=== PATIENT | female | born 1990 | race Caucasian/White ===

== ENCOUNTER 2016-05-29 09:48 | Outpatient (CLI) | payer MEDICAID | END 2016-05-29 09:49 | disposition home or self-care (01) | DX: R05 Cough (principal) ==

== ENCOUNTER 2016-10-09 17:22 | Outpatient (CLI) | payer MEDICAID ==
--- NOTE | 2016-10-10 10:01 | XRAY Report ---
TWO-VIEW CERVICAL SPINE: 10/09/2016 CLINICAL INDICATION: Scoliosis. FINDINGS: Frontal and lateral views of the cervical spine demonstrate straightening of the normal ce rvical lordosis. There is no evidence of fracture or subluxation. The disk spaces are preserved. T he prevertebral soft tissues are unremarkable. IMPRESSION: STRAIGHTENING OF THE NORMAL CERVICAL LORDOSIS. NO SIGNIFICANT CERVICAL SCOLIOSIS. JOB #: [id number] EXT JOB #:[id number]
--- NOTE | 2016-10-10 10:02 | XRAY Report ---
TWO-VIEW THORACIC SPINE: 10/09/2016 CLINICAL INDICATION: Scoliosis. FINDINGS: Frontal and lateral views of the thoracic spine demonstrate dextroscoliosis of the lower t horacic spine, measuring 22 degrees between the pedicles of T6 and T11. There is no evidence of comp ression fracture. The disk spaces are preserved. IMPRESSION: A 22 DEGREE DEXTROSCOLIOSIS OF THE LOWER THORACIC SPINE. JOB #: [id number] EXT JOB #:[id number]
--- NOTE | 2016-10-10 10:04 | XRAY Report ---
TWO-VIEW LUMBAR SPINE: 10/09/2016 CLINICAL INDICATION: Scoliosis. FINDINGS: Frontal and lateral views of the lumbar spine demonstrate compensatory levoscoliosis, mushtaq uring 17 degrees between the pedicles of T12 and L4. There is no evidence of fracture. The disk spa joselito are preserved. IMPRESSION: A 17 DEGREE LEVOSCOLIOSIS OF THE LUMBAR SPINE. JOB #: [id number] EXT JOB #:[id number]
== END 2016-10-09 23:59 | disposition home or self-care (01) ==
LOC: DI 17:22
PROVIDERS: ATTEND Family Medicine
DX: M41.84 Other forms of scoliosis, thoracic region (principal); M41.86 Other forms of scoliosis, lumbar region
CPT/HCPCS: 72040; 72070; 72100

== ENCOUNTER 2017-04-08 15:54 | Outpatient (CLI) | payer MEDICAID | END 2017-04-08 15:55 | disposition home or self-care (01) | LOC: LAB.WCP 15:54 | PROVIDERS: ATTEND Family Medicine | DX: N91.2 Amenorrhea, unspecified (principal) | CPT/HCPCS: 36415; 84702; 84703 ==

== ENCOUNTER 2017-05-01 08:00 | Outpatient (CLI) | payer MEDICAID ==
[2017-05-01 18:39] LABS: BASOPHILS # (AUTO) 0.1 10^3/uL (0.0-0.1); EOSINOPHILS # (AUTO) 0.4 10^3/uL (0.0-0.7); EOSINOPHILS % (AUTO) 4.7 %; HCT - HEMATOCRIT 41.4 % (37.0-47.0); HGB - HEMOGLOBIN 13.8 g/dL (12.0-16.0); LYMPHOCYTES # (AUTO) 2.1 10^3/uL (1.5-3.5); LYMPHOCYTES % (AUTO) 27.2 %; MEAN CORPUSCULAR HEMOGLOBIN 30.6 pg (27.0-31.0); MEAN CORPUSCULAR HGB CONC 33.2 g/dL (32.0-36.0); MEAN CORPUSCULAR VOLUME 92.1 fL (81.0-99.0); MEAN PLATELET VOLUME 9.6 fL (7.9-10.8); MONOCYTES # (AUTO) 0.5 10^3/uL (0.0-1.0); NEUTROPHILS # (AUTO) 4.8 10^3/uL (1.5-6.6); NEUTROPHILS % (AUTO) 61.1 %; RED BLOOD COUNT 4.49 10^6/uL (4.20-5.40); RED CELL DISTRIBUTION WIDTH 13.5 % (12.0-15.0); UNCORRECTED WHITE BLOOD COUNT 7.9 x10^3/uL; WHITE BLOOD COUNT 7.9 x10^3/uL (4.8-10.8)
[2017-05-01 19:02] LABS: ALBUMIN/GLOBULIN RATIO 1.5 (1.0-2.2); BILIRUBIN,TOTAL 0.2 mg/dL (0.2-1.0); BUN - BLOOD UREA NITROGEN 12 mg/dL (6-20); CALCIUM 9.1 mg/dL (8.5-10.3); CARBON DIOXIDE - CO2 23 mmol/L (21-32); CHLORIDE 104 mmol/L (101-111); CREATININE 0.5 mg/dL (0.4-1.0); GFR - MDRD 150 (>89); GLUCOSE 98 mg/dL (70-100); POTASSIUM 3.4 mmol/L (3.5-5.0); SODIUM 137 mmol/L (135-145); TOTAL PROTEIN 7.4 g/dL (6.7-8.2)
== END 2017-05-01 08:01 | disposition home or self-care (01) ==
LOC: LAB.WCP 08:00
PROVIDERS: ATTEND Family Medicine
DX: F31.31 Bipolar disorder, current episode depressed, mild (principal); N91.2 Amenorrhea, unspecified
CPT/HCPCS: 36415; 80053; 84443; 84702; 85025

== ENCOUNTER 2017-05-28 11:58 | Outpatient (CLI) | payer MEDICAID ==
[2017-05-28 12:35] LABS: BILIRUBIN,URINE NEGATIVE (NEGATIVE); GLUCOSE, URINE (UA) NEGATIVE (NEGATIVE); KETONES,URINE (UA) NEGATIVE (NEGATIVE); LEUKOCYTE ESTERASE, URINE NEGATIVE (NEGATIVE); NITRITE,URINE NEGATIVE (NEGATIVE); OCCULT BLOOD,URINE NEGATIVE (NEGATIVE); PROTEIN,URINE NEGATIVE (NEGATIVE); UROBILINOGEN,URINE 0.2 (NORMAL) E.U./dL (NORMAL)
[2017-05-28 12:38] LABS: CLARITY,URINE CLEAR (CLEAR)
[2017-05-28 12:39] LABS: BACTERIA,URINE Rare /HPF (None Seen); RBC,URINE 0-5 /HPF (0-5); SQUAMOUS EPITHELIAL CELL,UR MOD Squamous (<= Few)
[2017-05-28 12:51] LABS: BASOPHILS % (AUTO) 0.5 %; EOSINOPHILS # (AUTO) 0.1 10^3/uL (0.0-0.7); EOSINOPHILS % (AUTO) 1.1 %; HGB - HEMOGLOBIN 13.6 g/dL (12.0-16.0); LYMPHOCYTES # (AUTO) 2.3 10^3/uL (1.5-3.5); LYMPHOCYTES % (AUTO) 25.9 %; MEAN CORPUSCULAR HEMOGLOBIN 30.8 pg (27.0-31.0); MEAN CORPUSCULAR HGB CONC 33.6 g/dL (32.0-36.0); MEAN CORPUSCULAR VOLUME 91.7 fL (81.0-99.0); MEAN PLATELET VOLUME 8.8 fL (7.9-10.8); MONOCYTES # (AUTO) 0.6 10^3/uL (0.0-1.0); MONOCYTES % (AUTO) 6.8 %; NEUTROPHILS # (AUTO) 5.8 10^3/uL (1.5-6.6); NEUTROPHILS % (AUTO) 65.7 %; PLT - PLATELET COUNT 327 10^3/uL (130-450); RED BLOOD COUNT 4.41 10^6/uL (4.20-5.40); RED CELL DISTRIBUTION WIDTH 12.7 % (12.0-15.0); WHITE BLOOD COUNT 8.9 x10^3/uL (4.8-10.8)
[2017-05-29 12:45] LABS: HIV AG/AB 4TH GEN NON-REACTIVE (NON-REACTIVE)
[2017-05-29 13:00] LABS: HEPATITIS B SURFACE ANTIGEN NON-REACTIVE (NON-REACTIVE)
== END 2017-05-28 11:59 | disposition home or self-care (01) ==
LOC: LAB 11:58
PROVIDERS: ATTEND Nurse Practitioner Obstetrics & Gynecology
DX: Z36.9 Encounter for antenatal screening, unspecified (principal)
CPT/HCPCS: 36415; 81001; 81599; 85025; 86592; 86762; 86850; 86900; 86901; 87340; 87389

== ENCOUNTER 2017-09-08 07:24 | Outpatient (CLI) | payer MEDICARE, MEDICAID ==
--- NOTE | 2017-09-08 16:08 | Ultrasound Report ---
OB ULTRASOUND: 09/08/2017 CLINICAL INDICATION: anatomy. TECHNIQUE: Real-time scanning was performed with employment program representative static images obtained. LAST MENSTRUAL PERIOD: unknown Clinical Age: -- US Age: 24 weeks 2 days EFW Hadlock: 640 grams EFW% Hadlock: -- Heart Rate: 146 bpm EDC: -- US EDC: 12/27/2017 BPD Hadlock: 25 weeks 0 days; Mean mm 62 HC Hadlock: 24 weeks 5 days; Mean mm 227 AC Hadlock: 25 weeks 0 days; Mean mm 204 FL Hadlock: 22 weeks 1 day; Mean mm 38 Presentation: -- Placental Location: anterior Cervical Length: TA 3.7 cm Amniotic Fluid: subjectively normal; MVP 4.5 cm FINDINGS: There is a single viable intrauterine gestation, in variable presentation. heart rate is 146 BPM. The placenta is anterior, without evidence of previa. Amniotic fluid volume is subjectively normal, with the deepest pocket of 4.5 cm. By size, the fetus measures 24 weeks 2 days (uncertain LMP). The following anatomic structures were visualized and appear normal: The intracranial contents, including the ventricles and posterior fossa; the lips and orbits; the spine; the heart, including 4 chamber view and outflow tracts, and diaphragm; the abdominal contents, including the stomach, and urinary bladder, as well as a normal 3-vessel cord insertion; 4 limbs. Note is made of renal pelviectasis, measuring 6 mm on the left and 5 mm on the right. No free fluid or adnexal lesion is appreciated. IMPRESSION: SINGLE VIABLE INTRAUTERINE GESTATION, MEASURING 24 WEEKS 2 DAYS BY SIZE. BILATERAL RENAL PELVIECTASIS. THIS SHOULD BE REEVALUATED IN THE THIRD TRIMESTER. OTHERWISE, NORMAL ANATOMIC SURVEY. TD: 09/08/2017 10:36 [facility]
== END 2017-09-08 07:25 | disposition home or self-care (01) ==
LOC: DI 07:24
PROVIDERS: ATTEND Nurse Practitioner Obstetrics & Gynecology
DX: Z36.9 Encounter for antenatal screening, unspecified (principal); O28.3 Abnormal ultrasonic finding on antenatal screening of mother; Z3A.24 24 weeks gestation of pregnancy
CPT/HCPCS: 76811

== ENCOUNTER 2017-09-16 08:44 | Outpatient (CLI) | payer MEDICAID, MEDICARE ==
[2017-09-16 09:25] LABS: HGB - HEMOGLOBIN 12.8 g/dL (12.0-16.0); MEAN CORPUSCULAR HEMOGLOBIN 30.9 pg (27.0-31.0); MEAN CORPUSCULAR HGB CONC 34.1 g/dL (32.0-36.0); MEAN CORPUSCULAR VOLUME 90.6 fL (81.0-99.0); MEAN PLATELET VOLUME 8.1 fL (7.9-10.8); RED BLOOD COUNT 4.15 10^6/uL (4.20-5.40); RED CELL DISTRIBUTION WIDTH 13.3 % (12.0-15.0); WHITE BLOOD COUNT 13.1 x10^3/uL (4.8-10.8)
== END 2017-09-16 08:45 | disposition home or self-care (01) ==
LOC: LAB 08:44
PROVIDERS: ATTEND Registered Nurse
DX: Z34.82 Encounter for supervision of other normal pregnancy, second trimester (principal)
CPT/HCPCS: 36415; 82950; 86850

== ENCOUNTER 2017-10-06 07:54 | Outpatient (CLI) | payer MEDICAID, MEDICARE | END 2017-10-06 07:55 | disposition home or self-care (01) | LOC: LAB 07:54 | PROVIDERS: ATTEND Registered Nurse | DX: R73.02 Impaired glucose tolerance (oral) (principal) | CPT/HCPCS: 36415; 82951; 82952 ==

== ENCOUNTER 2017-10-12 11:24 | Outpatient (CLI) | payer MEDICARE, MEDICAID ==
[2017-10-12 12:38] LABS: BASOPHILS % (AUTO) 0.7 %; EOSINOPHILS % (AUTO) 0.8 %; HGB - HEMOGLOBIN 13.5 g/dL (12.0-16.0); MEAN CORPUSCULAR HEMOGLOBIN 30.1 pg (27.0-31.0); MEAN CORPUSCULAR HGB CONC 33.9 g/dL (32.0-36.0); MEAN CORPUSCULAR VOLUME 88.9 fL (81.0-99.0); MEAN PLATELET VOLUME 7.9 fL (7.9-10.8); MONOCYTES % (AUTO) 4.4 %; NEUTROPHILS % (AUTO) 83.1 %; PLT - PLATELET COUNT 308 10^3/uL (130-450); RED BLOOD COUNT 4.47 10^6/uL (4.20-5.40); RED CELL DISTRIBUTION WIDTH 13.4 % (12.0-15.0); WHITE BLOOD COUNT 14.8 x10^3/uL (4.8-10.8)
[2017-10-12 12:43] VITALS: BP 130/93
[2017-10-12 12:43] LABS: ABNORMAL LYMPHS % (MANUAL) 0 %; BAND NEUTROPHILS % (MANUAL) 0 %
[2017-10-12 12:56] LABS: CREATININE,URINE < 13.0 mg/dL; TOTAL PROTEIN,URINE TIMED < 6 mg/dL
[2017-10-12 13:21] LABS: BASOPHILS # (MANUAL) 0.3 10^3/uL (0-0.1); BASOPHILS % (MANUAL) 2 %; EOSINOPHILS # (MANUAL) 0.1 10^3/uL (0-0.7); LYMPHOCYTES # (MANUAL) 2.5 10^3/uL (1.5-3.5); LYMPHOCYTES % (MANUAL) 16 %; MONOCYTES # (MANUAL) 0.9 10^3/uL (0.0-1.0); MYELOCYTES % (MANUAL) 1 %; NEUTROPHILS # (MANUAL) 10.8 10^3/uL (1.5-6.6); NEUTROPHILS % (MANUAL) 73 %
[2017-10-12 13:22] LABS: DIFFERENTIAL COMMENT MANUAL DIFFERENTIAL
== END 2017-10-12 13:06 | disposition home or self-care (01) ==
LOC: WFO 11:24 → FBP 11:26 → WFO 13:06
PROVIDERS: ATTEND Registered Nurse
DX: O13.3 Gestational [pregnancy-induced] hypertension without significant proteinuria, third trimester (principal); Z3A.28 28 weeks gestation of pregnancy
CPT/HCPCS: 36415; 59025; 82570; 83615; 84156; 84450; 84460; 84550; 85025

== ENCOUNTER 2017-10-13 08:00 | Outpatient (CLI) | payer MEDICAID, MEDICARE ==
[2017-10-13 16:49] LABS: TOTAL PROTEIN,URINE TIMED < 6 mg/dL; TOTAL VOLUME 24HRS,URINE 3240 mL
== END 2017-10-13 08:01 | disposition home or self-care (01) ==
LOC: LAB.R 08:00
PROVIDERS: ATTEND Registered Nurse
DX: O24.410 Gestational diabetes mellitus in pregnancy, diet controlled (principal)
CPT/HCPCS: 84156

== ENCOUNTER 2017-11-24 13:23 | Inpatient (IN) | payer MEDICARE, MEDICAID ==
[2017-11-24] MEDS ORDERED: OXYTOCIN/SODIUM CHLORIDE 0 ML IV ONE (13:55)
[2017-11-24] MEDS ORDERED: MAGNESIUM HYDROXIDE 2,400 MG/30 ML UDC PO PRN (14:04)
[2017-11-24] MEDS ORDERED: HYDROCORTISONE/PRAMOXINE 10 GM PR PRN (14:04)
[2017-11-24] MEDS ORDERED: OXYTOCIN/SODIUM CHLORIDE 250 ML IV ONE (14:04)
[2017-11-24] MEDS ORDERED: HYDROCORTISONE 1% CREAM 28 GM TUBE PR PRN (14:04)
[2017-11-24] MEDS ORDERED: oxyCODONE 5 MG TABLET PO PRN (14:04)
[2017-11-24] MEDS ORDERED: WITCH HAZEL/GLYCERIN 1 EACH MED..PAD TOP PRN (14:04)
--- NOTE | 2017-11-24 14:12 | DELIVERY NOTE ---
Delivery Note - Labor Labor: positive: Spontaneous - Delivery Method Delivery Method: positive: Spontaneous vaginal delivery - Presentation Presentation: positive: Vertex, FREDRICK - right occiput anterior - Nuchal Cord Nuchal Cord: positive: Present (tight x1; delivered through) - Anesthetic Anesthetic Type: - Episiotomy Type Episiotomy Type: positive: None - Laceration Laceration: positive: None - Delivery Outcome Delivery Outcome: positive: Livebirth - : positive: Placed in direct skin contact with mother, Suctioned, Bulb syringe, Stimulated, Warmed, Warmer used [place] sex: positive: Male - Cord Cord: positive: 3 vessels - Placenta Placenta: positive: Intact, Spontaneous - Estimated Blood Loss Estimated Blood Loss (in cc): 150 - Post Delivery Events Post Delivery Events: positive: No post delivery events - Delivery Comments (Free Text/Narrative) Delivery Comments (Free Text/Narrative): Martin Malone is a 27 y/o [id number] @ 34w6d by first trimester US who presented in spontaneous, active labor w/ advanced dilatation & progressed over a period of 2 minutes to complete dilatation @ 1341, for a total first stage duration of 1 hour. She pushed w/ spontaneous urge to viable male in FREDRICK position over intact perineum @ 1354, for a total 2nd stage duration of 13 minutes. Tight nuchal cord x1 non-reducible; delivered through, vigorous w/ spontaneous, lusty cry. Placed to maternal abd for drying/stim. Delayed cord clamping x2 minutes, then cord clamped x2 by CNM, cut by pt. 3VC noted, cord segment obtained for gases secondary to nature of delivery, cord blood obtained. Active management of the 3rd stage of labor w/ 10u IM pitocin x1. Placenta delivered spontaneously, intact @1359, for a total 3rd stage duration of 5min. FF @ U. Vagina & perineum inspected & found to be intact. EBL 150mL. Infant Apgars 9 at 1 and 9 at 5. Weight pending. Placenta to pathology for nature of delivery. Mother & infant presently stable, actively nuzzling breast w/in 15 minutes of delivery.
--- NOTE | 2017-11-24 14:17 | HISTORY & PHYSICAL EXAMINATION ---
Admit History - Instructions [place] Ak/Slash: -Left hand click circles element as positive or present. -Right hand click slashes element as negative or not present. - Visit Reason Visit Reason: Contractions (beginning @ 12:00, painful) - : 1 Parity: 0 Premature: 0 Ectopic: 0 : 0 Care: positive: [facility] (beginning @ 9 weeks' gestation, x11 total visits) Complications This : positive: Gestational diabetes, induced HTN Smoking Status: Never smoker - Mother's Labs Mother's Blood Type: positive: O Mother's RH: positive: Negative GBS: positive: Other (unknown) Rubella Status: positive: Non-immune - Other Maternal History Other Maternal History: cognitive deficit Meds/Allgy - Allergies Allergies/Adverse Reactions: Allergies Allergy/AdvReac Type Severity Reaction Status Date / Time No Known Drug Allergies Allergy Verified 10/12/17 12:02 Review of Systems - Constitutional Constitutional: denies: Fatigue, Fever, Chills, Weakness - Eyes Eyes: denies: Blurred vision, Spots in vision, Dipolpia - Cardiovascular Cariovascular: denies: Irregular heart rate, Palpitations, Chest pain, Edema - Respiratory Respiratory: denies: Cough, Sputum production, Wheezing, SOB with exertion - Gastrointestinal Gastrointestinal: reports: Abdominal pain (contractions). denies: Constipation , Diarrhea, Change in bowel habits, Nausea, Vomiting - Genitourinary Genitourinary: reports: Frequency, Urgency, Incontinence. denies: Dysuria - Musculoskeletal Musculoskeletal: reports: Back pain. denies: Muscle pain, Muscle aches - Integumentary Integumentary: denies: Rash, Pruritis, Lesions, Dryness - Neurological Neurological: denies: General weakness, Focal weakness, Headache, Dizziness - Psychiatric Psychiatric: reports: Anxiety. denies: Depression Physical - Abdominal Exam Contraction Frequency (min/apart): q 2 min Contraction Intensity: positive: Strong Uterine Resting Tone: positive: Soft - Monitoring Heart Rate Baseline: 130 Strip Review: positive: Category I - Presentation Presentation: positive: Vertex - Vaginal Exam Membranes: positive: Membranes ruptured (unknown duration of rupture) Dilation (in cm): 10 Effacement (%): 100 Station: positive: 1 Cervical Position: positive: Anterior - Speculum Exam Speculum Exam Performed: positive: No Findings: negative: Gross leak - Other Notes Labor Progress Note/Additional Text: Martin Malone is a 27 y/o @ 34w6d by first trimester US who presents w/ complaint of uterine contractions becoming intense @ 12:00, some bloody show, thinks she had some wetness in her underpants when she woke @ 8: 00. Her has been complicated by her cognitive deficit w/ known hx of autism, severe anxiety, the development of GDMA1 that has been well-controlled w / diet t/o & the development of gestational HTN w/o s/sx PET that has not required any medication management; she has had reassuring antepartum surveillance & consistently WNL SHIRA & NATHALIA. She is completely dilated & pushing w/ spontaneous urge @ the time of admission assessment. PMH: autistic spectrum disorder, generalized anxiety disorder, depressive disorder, migraine, lumbosacral plexus d/o, mild intermittent asthma PSH: none obhx: primiparous gynhx: NILM pap x1 in 2018, no hx of STI sochx: unemployed, on disability for pervasive developmental disability; to Rich, who also has a developmental disability, no ETOH/tobacco/ drugs, good social support from in-laws, hx depression/anxiety, presently well- managed w/ vistaril, zoloft & buspar during ; discontinued seroquel w/ awareness of , no DV; will need social work consult s/p delivery famhx: maternal hx PTD Plan for Labor - Plan For Labor I expect patient to be DC'd or transferred within 96 hours.: Yes Plan for Labor: Admit Delivery Imminent Peds notified
[2017-11-24] MEDS: ACETAMINOPHEN 500 MG TABLET PO SCH ×2 (15:18→22:04)
[2017-11-24] MEDS ORDERED: OXYTOCIN 10 UNIT/ML VIAL ONE (18:47)
[2017-11-24] MEDS: DOCUSATE SODIUM 100 MG CAPSULE PO SCH (22:04)
[2017-11-25] MEDS: ACETAMINOPHEN 500 MG TABLET PO SCH ×3 (05:40→21:46)
[2017-11-25] MEDS ORDERED: MEASLES,MUMPS & RUBELLA VACC 0.5 ML VIAL SUBQ ONE (08:22)
[2017-11-25] MEDS ORDERED: RHO(D) IMMUNE GLOBULIN 300 MCG SYRINGE IM ONE (08:22)
[2017-11-25] MEDS ORDERED: OXYTOCIN 10 UNIT/ML VIAL IM ONE (08:22)
--- NOTE | 2017-11-25 08:25 | PROVIDER PROGRESS NOTE ---
Subjective - Prog Note Date Prog Note Date: 11/25/17 Prog Note Time: 08:15 - Subjective Pt reports feeling: Improved Subjective: Pratima is doing well. She is ambulating & voiding w/o difficulty or incontinence. She reports minimal lochia rubra. She states her pain is well- controlled w/ acetaminophen only. She is not yet able to get her to latch, but she is pumping & spoon-feeding & continues her efforts to encourage him to latch. She is not planning to return to work. She is well-supported by Rich & his family. Objective - Vital Signs/Intake & Output Reviewed Vital Signs: Yes Intake & Output: Intake & Output 11/22/17 11/23/17 11/24/17 11/25/17 23:59 23:59 23:59 23:59 Intake Total 200 Output Total 800 Balance -800 200 - Objective General Appearance: positive: No acute distress, Alert Respiratory: positive: Chest non-tender, No respiratory distress, Breath sounds nml Cardiovascular: positive: Regular rate & rhythm, No murmur Abdomen: positive: Non-tender, No distention, Other (FF U-2) Skin: positive: Color nml, No rash, Warm, Dry Extremities: positive: Non-tender, Full ROM, Nml appearance, No pedal edema. negative: Calf tenderness, Kailee's sign/cords Neurologic/Psychiatric: positive: Oriented x3, CN's nml (2-12), Motor nml, Sensation nml, Mood/affect nml - Lab Results Other Labs: Lab Results x24hrs 11/24/17 Range/Units 17:08 Blood Type O NEGATIVE Weak D (Du) WEAK-D NEGATIVE Maternal Bleed NEGATIVE (NEGATIVE) Assessment/Plan - Problem List (1) (normal spontaneous vaginal delivery) Impression: 27 y/o s/p precipitous delivery 11/25/2017, PPD #1 Normal uterine involution Minimal lochia Adequate pain control 1. Continue routine care 2. support provided & to continue in ongoing fashion 3. Ongoing social work involvement secondary to developmental delay to ensure adequate resources for provision of care 4. Anticipate d/c PPD#2
[2017-11-25] MEDS: DOCUSATE SODIUM 100 MG CAPSULE PO SCH ×2 (13:54→21:46)
[2017-11-26] MEDS: ACETAMINOPHEN 500 MG TABLET PO SCH ×2 (05:36→13:14)
[2017-11-26] MEDS ORDERED: RHO(D) IMMUNE GLOBULIN 300 MCG SYRINGE IM SCH (05:45)
[2017-11-26] MEDS: DOCUSATE SODIUM 100 MG CAPSULE PO SCH (09:33)
--- NOTE | 2017-11-26 10:06 | Discharge Plan ---
Discharge Plan Disposition: 01 Home, Self Care Condition: Good Diet: Regular Activity Restrictions: pelvic rest x6 weeks Shower Restrictions: No Driving Restrictions: No Weight Bearing: Full Weight Instruction Topics: Vaginal After, Breastfeed How To, Jaundice Signs Inf , Exercises Kegel No Smoking: If you smoke, Please STOP! Call for help. Follow-up with: Irais Lentz CNM, [facility] [Provider Admit Priv/Credential] -
--- NOTE | 2017-11-26 10:12 | DISCHARGE SUMMARY ---
"Discharge Summary Admit Date: 11/24/17 Discharge Date: 11/26/17 Discharging Provider: LILIAN Code Status: Attempt Resuscitation Condition at Discharge: Good Discharge Disposition: 01 Home, Self Care Discharge Facility Name: [facility] - DIAGNOSES Admission Diagnoses: SPONTANEOUS LABOR @ 34WEEKS GESTATION PRECIPITOUS GESTATIONAL DM A1 GESTATIONAL HTN Discharge Diagnoses with Status of Each Condition: - HPI History of Present Illness: Martin Malone is a 27 y/o [id number] who presented in active, spontaneous labor @ 34w6d gestation by first trimester US. She delivered a viable male vaginally precipitously 17 minutes s/p arrival @ the hospital w/o laceration, intervention or complication. - CONSULTS | PROCEDURES Procedures: - HOSPITAL COURSE Hospital Course: , Martin is ambulating & voiding w/o difficulty or incontinence. She is passing flatus & tolerating a regular diet. She is w/ some challenges secondary to prematurity but is pumping & spoon-feeding her successfully & w/ copious colostrum production. Her pain is well- managed w/o analgesia & she is having minimal lochia rubra. Martin is well- supported by her 's family and her , although her 's disability does limit his capacity to be productive in his assistance. Martin is not planning to return to work & does not intend another . She has been seen by social work & has arrangements for extensive social support s/p discharge. She intends oral contraception for prevention & is highly compliant w/ her medication regimen. She has a hx of anxiety & depression, which have been well-controlled w/ sertraline, buspirone & hydroxyzine during the course of her . She intends to continue her present medication regimen s/p discharge. She is able to fully articulate pp warning s/sx, including pp depression s/sx, and pp aftercare instructions. Her will not be d/c'ed today, but Martin will be discharged from inpatient status & will remain as a boarder to continue to provide direct care and breastmilk for her . She will f/u as an outpatient in one week and earlier PRN. She has emergency contact information. - ALLERGIES Allergies/Adverse Reactions: Allergies Allergy/AdvReac Type Severity Reaction Status Date / Time No Known Drug Allergies Allergy Verified 10/12/17 12:02"
[2017-11-26 16:00] VITALS: BP 138/86
[2017-11-26] MEDS ORDERED: MEASLES,MUMPS & RUBELLA VACC 0.5 ML VIAL SUBQ ONE ×2 (17:00→17:10)
== END 2017-11-26 18:01 | disposition home or self-care (01) | DRG 775 ==
LOC: WFO 13:23 → FBP 13:40 → WFO 14:03 → FBP 14:04
PROVIDERS: ADMIT Registered Nurse; ATTEND Registered Nurse
PROC: 10E0XZZ Delivery of Products of Conception, External Approach (ICD-10-PCS; principal; 2017-11-24)
DX: O60.14X0 Preterm labor third trimester with preterm delivery third trimester, not applicable or unspecified (principal); F84.0 Autistic disorder; O42.013 Preterm premature rupture of membranes, onset of labor within 24 hours of rupture, third trimester; O62.3 Precipitate labor; O69.81X0 Labor and delivery complicated by cord around neck, without compression, not applicable or unspecified; Z3A.34 34 weeks gestation of pregnancy; Z37.0 Single live birth; O24.420 Gestational diabetes mellitus in childbirth, diet controlled; O13.4 Gestational [pregnancy-induced] hypertension without significant proteinuria, complicating childbirth; O99.344 Other mental disorders complicating childbirth; F41.1 Generalized anxiety disorder; F29 Unspecified psychosis not due to a substance or known physiological condition; Z79.899 Other long term (current) drug therapy; Z28.3 Underimmunization status
CPT/HCPCS: 83033; 86900; 86901

== ENCOUNTER 2017-12-14 11:43 | Emergency (ER) | payer MEDICARE, MEDICAID ==
[2017-12-14 13:16] LABS: BASOPHILS # (AUTO) 0.1 10^3/uL (0.0-0.1); EOSINOPHILS # (AUTO) 0.8 10^3/uL (0.0-0.7); HGB - HEMOGLOBIN 14.5 g/dL (12.0-16.0); LYMPHOCYTES # (AUTO) 1.7 10^3/uL (1.5-3.5); LYMPHOCYTES % (AUTO) 15.7 %; MEAN CORPUSCULAR HEMOGLOBIN 30.2 pg (27.0-31.0); MEAN CORPUSCULAR VOLUME 88.8 fL (81.0-99.0); MONOCYTES # (AUTO) 0.5 10^3/uL (0.0-1.0); NEUTROPHILS # (AUTO) 7.8 10^3/uL (1.5-6.6); NEUTROPHILS % (AUTO) 71.3 %; PLT - PLATELET COUNT 330 10^3/uL (130-450); RED CELL DISTRIBUTION WIDTH 13.1 % (12.0-15.0); WHITE BLOOD COUNT 10.9 x10^3/uL (4.8-10.8)
[2017-12-14 13:34] LABS: ALBUMIN 3.9 g/dL (3.2-5.5); ALBUMIN/GLOBULIN RATIO 1.1 (1.0-2.2); ALKALINE PHOSPHATASE 102 IU/L (42-121); ALT ALANINE AMINOTRANSFERASE 57 IU/L (10-60); AST ASPARTATE AMINOTRANSFERASE 42 IU/L (10-42); BILIRUBIN,TOTAL 0.3 mg/dL (0.2-1.0); BUN - BLOOD UREA NITROGEN 11 mg/dL (6-20); CALCIUM 8.7 mg/dL (8.5-10.3); CARBON DIOXIDE - CO2 21 mmol/L (21-32); CHLORIDE 104 mmol/L (101-111); CREATININE 0.4 mg/dL (0.4-1.0); GFR - MDRD 194 (>89); GLUCOSE 137 mg/dL (70-100); LIPASE 28 U/L (22-51); SALICYLATE < 6.0 mg/dL; SODIUM 137 mmol/L (135-145); TOTAL PROTEIN 7.6 g/dL (6.7-8.2)
[2017-12-14 13:37] LABS: ACETAMINOPHEN < 10 ug/mL (10-30)
[2017-12-14 13:42] LABS: MUDS CUTOFF CONCENTRATIONS CUTOFF CONC BELOW:
[2017-12-14 13:50] LABS: BILIRUBIN,URINE NEGATIVE (NEGATIVE); GLUCOSE, URINE (UA) NEGATIVE (NEGATIVE); KETONES,URINE (UA) NEGATIVE (NEGATIVE); LEUKOCYTE ESTERASE, URINE SMALL (NEGATIVE); NITRITE,URINE NEGATIVE (NEGATIVE); OCCULT BLOOD,URINE SMALL (NEGATIVE); PROTEIN,URINE 30 mg/dL (NEGATIVE); UROBILINOGEN,URINE 0.2 (NORMAL) E.U./dL (NORMAL)
[2017-12-14 13:54] LABS: CLARITY,URINE SL. CLOUDY (CLEAR); HCG UR QUAL NEGATIVE
[2017-12-14 14:07] LABS: AMPHETAMINE SCREEN,URINE NEGATIVE (NEGATIVE); BENZODIAZEPINES SCREEN, URINE NEGATIVE (NEGATIVE); COCAINE SCREEN URINE NEGATIVE (NEGATIVE); METHADONE SCREEN, URINE NEGATIVE (NEGATIVE); METHAMPHETAMINES SCREEN, URINE NEGATIVE (NEGATIVE); OPIATE SCREEN, URINE NEGATIVE (NEGATIVE); OXYCODONE SCREEN, URINE NEGATIVE (NEGATIVE); PROPOXYPHENE SCREEN, URINE NEGATIVE (NEGATIVE); TRICYCLIC ANTIDEPRESSANT,URINE NEGATIVE (NEGATIVE)
[2017-12-14 14:15] LABS: BACTERIA,URINE Few /HPF (None Seen); MUCUS,URINE Few Strands; RBC,URINE 0-5 /HPF (0-5); SQUAMOUS EPITHELIAL CELL,UR MANY Squamous (<= Few)
[2017-12-14] MEDS ORDERED: POTASSIUM BICARB 25 MEQ TABLET PO STA (14:34)
[2017-12-14] MEDS ORDERED: ONDANSETRON ODT 4 MG TABLET TL STA (14:34)
--- NOTE | 2017-12-14 14:37 | ED Physician Documentation ---
PD HPI HEENT - Stated complaint Stated Complaint: ETOH - Chief complaint Chief Complaint: Resp - History obtained from History obtained from: Patient, Family - History of Present Illness Timing - onset: Today (27-year-old woman with underlying mental illness, she is 3 weeks and the baby is already in CPS custody because of her and her 's mental health issues. She started drinking heavily at 3 AM this morning, it was not in a suicide attempt she was just trying to escape for a few hours and she got really drunk and she started vomiting. She also complains of a nonproductive cough and wheezing, she does have underlying asthma and has an albuterol inhaler at home. When I asked her if she is depressed she says may be a little, but she denies suicidal ideation.) Review of Systems Constitutional: denies: Fever, Chills Respiratory: reports: Cough. denies: Dyspnea GI: reports: Nausea, Vomiting. denies: Abdominal Pain, Diarrhea PD PAST MEDICAL HISTORY - Present Medications Home Medications: Ambulatory Orders Medication Instructions Recorded Confirmed QUEtiapine [SEROquel] 12/14/17 Sertraline [Zoloft] 12/14/17 - Allergies Allergies/Adverse Reactions: Allergies Allergy/AdvReac Type Severity Reaction Status Date / Time No Known Drug Allergies Allergy Verified 12/14/17 11:53 - Social History Smoking Status: Never smoker PD ED PE NORMAL - Vitals Vital signs reviewed: Yes - General General: Alert and oriented X 3, No acute distress - HEENT HEENT: PERRL, EOMI - Neck Neck: Supple, no meningeal sign, No bony TTP - Cardiac Cardiac: RRR, No murmur - Respiratory Respiratory: No respiratory distress, Other (She has mild wheezes throughout with good air movement and she was encouraged to use her albuterol inhaler.) - Abdomen Abdomen: Non tender - Neuro Neuro: Alert and oriented X 3, Normal speech - Psych Psych: Normal mood, Normal affect Results - Vitals Vitals: Vital Signs - 24 hr 12/14/17 12/14/17 11:48 12:59 Temperature 36 C L 36.1 C L Heart Rate 115 H 76 Respiratory 20 18 Rate Blood Pressure 113/100 H 126/80 O2 Saturation 98 99 Oxygen O2 Source Room air - Labs Labs: Laboratory Tests 12/14/17 12/14/17 12/14/17 12:30 12:30 13:00 WBC RBC Hgb Hct MCV MCH MCHC RDW Plt Count MPV Neut # (Auto) Lymph # (Auto) [place] # (Auto) Eos # (Auto) Baso # (Auto) Absolute Nucleated RBC Nucleated RBC % Sodium 137 Potassium 2.9 L Chloride 104 Carbon Dioxide 21 Anion Gap 12.0 BUN 11 Creatinine 0.4 Estimated GFR (MDRD) 194 Glucose 137 H Calcium 8.7 Total Bilirubin 0.3 AST 42 ALT 57 Alkaline Phosphatase 102 Total Protein 7.6 Albumin 3.9 Globulin 3.7 Albumin/Globulin Ratio 1.1 Lipase 28 Urine Color YELLOW Urine Clarity SL. CLOUDY Urine pH 6.0 Ur Specific [place] 1.015 Urine Protein 30 H Urine Glucose (UA) NEGATIVE Urine Ketones NEGATIVE Urine Occult Blood SMALL H Urine Nitrite NEGATIVE Urine Bilirubin NEGATIVE Urine Urobilinogen 0.2 (NORMAL) Ur Leukocyte Esterase SMALL H Urine RBC 0-5 Urine WBC 6-10 H Ur Squamous Epith Cells MANY Squamous H Urine Bacteria Few Urine Mucus Few Strands Ur Microscopic Review INDICATED Urine Culture Comments NOT INDICATED Urine HCG, Qual NEGATIVE Salicylates < 6.0 Urine Opiates Screen NEGATIVE Ur Oxycodone Screen NEGATIVE Urine Methadone Screen NEGATIVE Ur Propoxyphene Screen NEGATIVE Acetaminophen < 10 L Ur Barbiturates Screen NEGATIVE Ur Tricyclics Screen NEGATIVE Ur Phencyclidine Scrn NEGATIVE Ur Amphetamine Screen NEGATIVE U Methamphetamines Scrn NEGATIVE U Benzodiazepines Scrn NEGATIVE Urine Cocaine Screen NEGATIVE U Cannabinoids Screen NEGATIVE Ethyl Alcohol 194.1 12/14/17 13:00 WBC 10.9 H RBC 4.80 Hgb 14.5 Hct 42.6 MCV 88.8 MCH 30.2 MCHC 34.0 RDW 13.1 Plt Count 330 MPV 8.0 Neut # (Auto) 7.8 H Lymph # (Auto) 1.7 [place] # (Auto) 0.5 Eos # (Auto) 0.8 H Baso # (Auto) 0.1 Absolute Nucleated RBC 0.00 Nucleated RBC % 0.0 Sodium Potassium Chloride Carbon Dioxide Anion Gap BUN Creatinine Estimated GFR (MDRD) Glucose Calcium Total Bilirubin AST ALT Alkaline Phosphatase Total Protein Albumin Globulin Albumin/Globulin Ratio Lipase Urine Color Urine Clarity Urine pH Ur Specific [place] Urine Protein Urine Glucose (UA) Urine Ketones Urine Occult Blood Urine Nitrite Urine Bilirubin Urine Urobilinogen Ur Leukocyte Esterase Urine RBC Urine WBC Ur Squamous Epith Cells Urine Bacteria Urine Mucus Ur Microscopic Review Urine Culture Comments Urine HCG, Qual Salicylates Urine Opiates Screen Ur Oxycodone Screen Urine Methadone Screen Ur Propoxyphene Screen Acetaminophen Ur Barbiturates Screen Ur Tricyclics Screen Ur Phencyclidine Scrn Ur Amphetamine Screen U Methamphetamines Scrn U Benzodiazepines Scrn Urine Cocaine Screen U Cannabinoids Screen Ethyl Alcohol PD MEDICAL DECISION MAKING - ED course ED course: 27-year-old woman presents with alcohol intoxication. She is not breast- feeding and there is no acute medical emergency identified. Potassium was repleted orally and she was given a Zofran, although her vomiting is much less than it was earlier this morning. - Sepsis Event Vital Signs: Vital Signs - 24 hr 12/14/17 12/14/17 11:48 12:59 Temperature 36 C L 36.1 C L Heart Rate 115 H 76 Respiratory 20 18 Rate Blood Pressure 113/100 H 126/80 O2 Saturation 98 99 Oxygen O2 Source Room air Departure - Departure Disposition: 01 Home, Self Care Clinical Impression: Asthma Qualifiers: Asthma severity: mild Asthma persistence: intermittent Asthma complication type : with acute exacerbation Qualified Code(s): J45.21 - Mild intermittent asthma with (acute) exacerbation Alcohol intoxication Qualifiers: Complication of substance-induced condition: uncomplicated Qualified Code(s): F10.920 - Alcohol use, unspecified with intoxication, uncomplicated Condition: Good Record reviewed to determine appropriate education?: Yes Instructions: Asthma Dc, ED Alcohol Intoxication Comments: Follow-up with [facility] at [phone] to schedule psychiatric care and counseling.
[2017-12-14 14:43] VITALS: BP 141/89
== END 2017-12-14 14:44 | disposition home or self-care (01) ==
LOC: ED 11:43
DX: J45.21 Mild intermittent asthma with (acute) exacerbation (principal); F10.920 Alcohol use, unspecified with intoxication, uncomplicated
CPT/HCPCS: 36415; 80053; 81001; 81025; 83690; 85025; 99282; 99283; A9270; Q0162; 80306; 80307; 80320; 80329; 81003; 87086

== ENCOUNTER 2020-11-26 09:39 | Emergency (ER) | payer MEDICAID, MEDICARE ==
[2020-11-26 09:54] VITALS: BP 139/119
--- NOTE | 2020-11-26 10:47 | ED Physician Documentation ---
PD HPI MHE - Stated complaint Stated Complaint: MHE - Chief complaint Chief Complaint: MHE - History obtained from History obtained from: Patient, Family - History of Present Illness Primary symptom: Psychosis (steady talking with pressured speech though is pleasant. Poor sleep. Mother in law says her bipolar is worsened the past couple of weeks. Patient says she ran out of her meds 2 weeks ago but [id number] and pharmacy [facility] noted show last refill was February 2020.), Off meds. No: Suicidal ideation Timing - onset: How many weeks ago (cpouple) Contributing factors: No: Substance abuse - ETOH, Substance abuse - drugs Similar symptoms before: Diagnosis (bipolar disorder, anxiety, autism.) Recently seen: Not recently seen (she says had not been to PCP for awhile regarding psych meds/history, but had had visit for annual [employer] exam in past month or such.) Review of Systems Constitutional: denies: Fever, Chills Nose: denies: Rhinorrhea / runny nose, Congestion Throat: denies: Sore throat Cardiac: denies: Chest pain / pressure Respiratory: denies: Dyspnea, Cough GI: reports: Nausea. denies: Abdominal Pain, Vomiting, Diarrhea Neurologic: denies: Altered mental status, Headache Psychiatric: reports: Anxiety, Insomnia. denies: Depressed, Suicidal PD PAST MEDICAL HISTORY - Past Medical History Cardiovascular: None Respiratory: None Endocrine/Autoimmune: None - Present Medications Home Medications: Ambulatory Orders Medication Instructions Recorded Confirmed QUEtiapine [SEROquel] 12/14/17 Sertraline [Zoloft] 12/14/17 QUEtiapine [SEROquel] 25 mg PO QPM #30 tablet 11/26/20 Sertraline [Zoloft] 50 mg PO DAILY 30 Days #30 tablet 11/26/20 - Allergies Allergies/Adverse Reactions: Allergies Allergy/AdvReac Type Severity Reaction Status Date / Time No Known Drug Allergies Allergy Verified 12/14/17 11:53 - Living Situation Living Situation: reports: With family Living Arrangement: reports: At home - Social History Does the pt smoke?: No Smoking Status: Never smoker Does the pt drink ETOH?: No Substance Use and Type: Marijuana - Family History Family history: reports: Non contributory PD ED PE NORMAL - General General: Alert and oriented X 3, No acute distress, Well developed/nourished, Other (pleasant and smiling, but talkative with some pressuring and tangential. ) - HEENT HEENT: Pharynx benign - Neck Neck: Supple, no meningeal sign, No adenopathy - Cardiac Cardiac: RRR (regular but mild tachycardia), No murmur - Respiratory Respiratory: Clear bilaterally - Abdomen Abdomen: Soft, Non tender - Derm Derm: Normal color, Warm and dry - Neuro Neuro: Alert and oriented X 3, No motor deficit, No sensory deficit, Normal speech - Psych Psych: Normal mood. No: Normal affect (somewhat pressured and tangential. ) Results - Vitals Vitals: Vital Signs - 24 hr 11/26/20 09:44 Temperature 36.1 C L Heart Rate 115 H Respiratory 16 Rate Blood Pressure 139/119 H O2 Saturation 97 Oxygen O2 Source Room air - Labs Labs: Laboratory Tests 11/26/20 11/26/20 11/26/20 11:32 11:32 11:32 WBC 9.2 RBC 4.65 Hgb 14.4 Hct 41.7 MCV 89.7 MCH 31.0 MCHC 34.5 RDW 12.4 Plt Count 288 MPV 10.1 Neut # (Auto) 7.0 H Lymph # (Auto) 1.7 [place] # (Auto) 0.4 Eos # (Auto) 0.0 Baso # (Auto) 0.1 Absolute Nucleated RBC 0.00 Nucleated RBC % 0.0 Sodium 135 Potassium 2.8 L Chloride 101 Carbon Dioxide 20 L Anion Gap 14.0 H BUN 9 Creatinine 0.7 Estimated GFR (MDRD) 100 Glucose 109 H Calcium 9.8 Total Bilirubin 1.9 H AST 28 ALT 24 Alkaline Phosphatase 50 Total Protein 8.1 Albumin 5.1 Globulin 3.0 Albumin/Globulin Ratio 1.7 Lipase 23 TSH 0.60 Urine Color Urine Clarity Urine pH Ur Specific [place] Urine Protein Urine Glucose (UA) Urine Ketones Urine Occult Blood Urine Nitrite Urine Bilirubin Urine Urobilinogen Ur Leukocyte Esterase Ur Microscopic Review Urine Culture Comments Urine HCG, Qual Nasal Adenovirus (PCR) Nasal B. parapertussis DNA (PCR) Nasal Coronavir 229E PCR Nasal Coronavir HKU1 PCR Nasal Coronavir NL63 PCR Nasal Coronavir OC43 PCR Nasal Enterovir/Rhinovir PCR Nasal Influenza B PCR Nasal Influenza A PCR Nasal Parainfluen 1 PCR Nasal Parainfluen 2 PCR Nasal Parainfluen 3 PCR Nasal Parainfluen 4 PCR Nasal RSV (PCR) Nasal B.pertussis DNA PCR Nasal C.pneumoniae (PCR) Yonis Human Metapneumo PCR Nasal M.pneumoniae (PCR) Nasal SARS-CoV-2 (PCR) Salicylates < 6.0 Urine Opiates Screen Ur Oxycodone Screen Urine Methadone Screen Ur Propoxyphene Screen Acetaminophen < 10 L Ur Barbiturates Screen Ur Tricyclics Screen Ur Phencyclidine Scrn Ur Amphetamine Screen U Methamphetamines Scrn U Benzodiazepines Scrn Urine Cocaine Screen U Cannabinoids Screen Ethyl Alcohol < 5.0 11/26/20 11/26/20 11:49 11:50 WBC RBC Hgb Hct MCV MCH MCHC RDW Plt Count MPV Neut # (Auto) Lymph # (Auto) [place] # (Auto) Eos # (Auto) Baso # (Auto) Absolute Nucleated RBC Nucleated RBC % Sodium Potassium Chloride Carbon Dioxide Anion Gap BUN Creatinine Estimated GFR (MDRD) Glucose Calcium Total Bilirubin AST ALT Alkaline Phosphatase Total Protein Albumin Globulin Albumin/Globulin Ratio Lipase TSH Urine Color YELLOW Urine Clarity CLEAR Urine pH 7.0 Ur Specific [place] <=1.005 Urine Protein NEGATIVE Urine Glucose (UA) NEGATIVE Urine Ketones 15 H Urine Occult Blood NEGATIVE Urine Nitrite NEGATIVE Urine Bilirubin NEGATIVE Urine Urobilinogen 0.2 (NORMAL) Ur Leukocyte Esterase NEGATIVE Ur Microscopic Review NOT INDICATED Urine Culture Comments NOT INDICATED Urine HCG, Qual NEGATIVE Nasal Adenovirus (PCR) NOT DETECTED Nasal B. parapertussis DNA (PCR) NOT DETECTED Nasal Coronavir 229E PCR NOT DETECTED Nasal Coronavir HKU1 PCR NOT DETECTED Nasal Coronavir NL63 PCR NOT DETECTED Nasal Coronavir OC43 PCR NOT DETECTED Nasal Enterovir/Rhinovir PCR NOT DETECTED Nasal Influenza B PCR NOT DETECTED Nasal Influenza A PCR NOT DETECTED Nasal Parainfluen 1 PCR NOT DETECTED Nasal Parainfluen 2 PCR NOT DETECTED Nasal Parainfluen 3 PCR NOT DETECTED Nasal Parainfluen 4 PCR NOT DETECTED Nasal RSV (PCR) NOT DETECTED Nasal B.pertussis DNA PCR NOT DETECTED Nasal C.pneumoniae (PCR) NOT DETECTED Yonis Human Metapneumo PCR NOT DETECTED Nasal M.pneumoniae (PCR) NOT DETECTED Nasal SARS-CoV-2 (PCR) NOT DETECTED Salicylates Urine Opiates Screen NEGATIVE Ur Oxycodone Screen NEGATIVE Urine Methadone Screen NEGATIVE Ur Propoxyphene Screen NEGATIVE Acetaminophen Ur Barbiturates Screen NEGATIVE Ur Tricyclics Screen NEGATIVE Ur Phencyclidine Scrn NEGATIVE Ur Amphetamine Screen NEGATIVE U Methamphetamines Scrn NEGATIVE U Benzodiazepines Scrn NEGATIVE Urine Cocaine Screen NEGATIVE U Cannabinoids Screen POSITIVE H Ethyl Alcohol PD MEDICAL DECISION MAKING - ED course Complexity details: re-evaluated patient (pt agreeable to Crisis Center to start meds and see that doing okay. ), considered differential (she would like to resume her prior meds. Will start at starting doses since likely has not been on them since Mar 2020. She is reluctant for hospitalization though [id number] is suggesting that. SW will talk with them. ), d/w patient Departure - Departure Disposition: Home, Self Care Clinical Impression: Bipolar affective disorder Qualifiers: Active/Remission status: currently active Current bipolar episode type: hypomanic Qualified Code(s): F31.0 - Bipolar disorder, current episode hypomanic Condition: Stable Record reviewed to determine appropriate education?: Yes Prescriptions: QUEtiapine [SEROquel] 25 mg PO QPM #30 tablet Sertraline [Zoloft] 50 mg PO DAILY 30 Days #30 tablet Comments: Start the sertraline 50 mg daily as directed. Start the quetiapine 25 mg at night regularly. Follow-up with your primary care in the next week or so. They may increase your quetiapine dosing if needed to 50 mg. Typically there is a stepwise increase in the dosing. I would not want to start you at the dose you had been on previously without incrementing it upward. Go to the Crisis Center in [place] for further treatment and assessment. Discharge Date/Time: 11/26/20 14:21
[2020-11-26] MEDS ORDERED: SERTRALINE 50 MG TABLET PO STA (11:21)
[2020-11-26] MEDS ORDERED: QUEtiapine 25 MG TABLET PO STA (11:21)
[2020-11-26] MEDS ORDERED: OLANZapine ODT 5 MG TABLET TL ONE (11:22)
[2020-11-26 11:38] LABS: BASOPHILS # (AUTO) 0.1 10^3/uL (0.0-0.1); BASOPHILS % (AUTO) 0.7 %; EOSINOPHILS % (AUTO) 0.1 %; HCT - HEMATOCRIT 41.7 % (37.0-47.0); HGB - HEMOGLOBIN 14.4 g/dL (12.0-16.0); LYMPHOCYTES # (AUTO) 1.7 10^3/uL (1.5-3.5); LYMPHOCYTES % (AUTO) 18.7 %; MEAN CORPUSCULAR HGB CONC 34.5 g/dL (32.0-36.0); MEAN CORPUSCULAR VOLUME 89.7 fL (81.0-99.0); MEAN PLATELET VOLUME 10.1 fL (7.9-10.8); MONOCYTES # (AUTO) 0.4 10^3/uL (0.0-1.0); MONOCYTES % (AUTO) 4.3 %; PLT - PLATELET COUNT 288 10^3/uL (130-450); RED BLOOD COUNT 4.65 10^6/uL (4.20-5.40); RED CELL DISTRIBUTION WIDTH 12.4 % (12.0-15.0); WHITE BLOOD COUNT 9.2 x10^3/uL (4.8-10.8)
[2020-11-26 11:54] LABS: ACETAMINOPHEN < 10 ug/mL (10-30); ALBUMIN 5.1 g/dL (3.2-5.5); ALBUMIN/GLOBULIN RATIO 1.7 (1.0-2.2); ALKALINE PHOSPHATASE 50 IU/L (42-121); ALT ALANINE AMINOTRANSFERASE 24 IU/L (10-60); AST ASPARTATE AMINOTRANSFERASE 28 IU/L (10-42); BILIRUBIN,TOTAL 1.9 mg/dL (0.2-1.0); BUN - BLOOD UREA NITROGEN 9 mg/dL (6-20); CALCIUM 9.8 mg/dL (8.5-10.3); CARBON DIOXIDE - CO2 20 mmol/L (21-32); CHLORIDE 101 mmol/L (101-111); CREATININE 0.7 mg/dL (0.4-1.0); ETOH - ETHANOL < 5.0 mg/dL; GFR - MDRD 100 (>89); GLUCOSE 109 mg/dL (70-100); LIPASE 23 U/L (22-51); POTASSIUM 2.8 mmol/L (3.5-5.0); SALICYLATE < 6.0 mg/dL; SODIUM 135 mmol/L (135-145); TOTAL PROTEIN 8.1 g/dL (6.7-8.2)
[2020-11-26 11:57] LABS: MUDS CUTOFF CONCENTRATIONS CUTOFF CONC BELOW:
[2020-11-26 12:00] LABS: BILIRUBIN,URINE NEGATIVE (NEGATIVE); GLUCOSE, URINE (UA) NEGATIVE (NEGATIVE); KETONES,URINE (UA) 15 mg/dL (NEGATIVE); LEUKOCYTE ESTERASE, URINE NEGATIVE (NEGATIVE); NITRITE,URINE NEGATIVE (NEGATIVE); OCCULT BLOOD,URINE NEGATIVE (NEGATIVE); PROTEIN,URINE NEGATIVE (NEGATIVE); UROBILINOGEN,URINE 0.2 (NORMAL) E.U./dL (NORMAL)
[2020-11-26 12:03] LABS: CLARITY,URINE CLEAR (CLEAR); HCG UR QUAL NEGATIVE
[2020-11-26 12:17] LABS: AMPHETAMINE SCREEN,URINE NEGATIVE (NEGATIVE); BARBITURATE SCREEN,UR NEGATIVE (NEGATIVE); BENZODIAZEPINES SCREEN, URINE NEGATIVE (NEGATIVE); COCAINE SCREEN URINE NEGATIVE (NEGATIVE); METHADONE SCREEN, URINE NEGATIVE (NEGATIVE); METHAMPHETAMINES SCREEN, URINE NEGATIVE (NEGATIVE); OPIATE SCREEN, URINE NEGATIVE (NEGATIVE); OXYCODONE SCREEN, URINE NEGATIVE (NEGATIVE); PROPOXYPHENE SCREEN, URINE NEGATIVE (NEGATIVE); THC CANNABINOID SCREEN, URINE POSITIVE (NEGATIVE); TRICYCLIC ANTIDEPRESSANT,URINE NEGATIVE (NEGATIVE)
[2020-11-26 13:00] LABS: B. PARAPERTUSSIS- RESP PCR PAN NOT DETECTED; B. PERTUSSIS- RESP PCR PANEL NOT DETECTED; C. PNEUMONIAE- RESP PCR PANEL NOT DETECTED; CORONAVIRUS 229E-RESP PCR NOT DETECTED; CORONAVIRUS HKU1-RESP PCR NOT DETECTED; CORONAVIRUS NL63-RESP PCR NOT DETECTED; CORONAVIRUS OC43-RESP PCR NOT DETECTED; HUMAN METAPNEUMOVIRUS NOT DETECTED; INFLUENZA A- RESP PCR PANEL NOT DETECTED; INFLUENZA B - RESP PCR PANEL NOT DETECTED; M. PNEUMONIAE- RESP PCR PANEL NOT DETECTED; PARAINFLUENZA VIRUS 1 NOT DETECTED; PARAINFLUENZA VIRUS 2 NOT DETECTED; PARAINFLUENZA VIRUS 3 NOT DETECTED; PARAINFLUENZA VIRUS 4 NOT DETECTED; RHINOVIRUS/ENTEROVIRUS NOT DETECTED; RSV- RESP PCR PANEL NOT DETECTED; SARS-CoV-2 -RESP PCR PANEL NOT DETECTED
== END 2020-11-26 14:21 | disposition home or self-care (01) ==
LOC: ED 09:39
DX: F31.0 Bipolar disorder, current episode hypomanic (principal); Z91.14 Patient's other noncompliance with medication regimen; Z20.822 Contact with and (suspected) exposure to COVID-19
CPT/HCPCS: 0202U; 36415; 80053; 80306; 80307; 80320; 80329; 81003; 81025; 83690; 84443; 85025; 99283; 99284; A9270; 81001; 87086

== ENCOUNTER 2023-08-20 16:46 | Outpatient (CLI) | payer MEDICAID | END 2023-08-20 23:59 | disposition critical access hospital (66) | LOC: EMS 16:46 | DX: R11.2 Nausea with vomiting, unspecified (principal); R63.1 Polydipsia; R73.9 Hyperglycemia, unspecified | CPT/HCPCS: A0425; A0429; A0999 ==

== ENCOUNTER 2023-08-20 17:12 | Emergency (ER) | payer MEDICAID ==
[2023-08-20 17:28] LABS: BASOPHILS % (AUTO) 0.3 %; HCT - HEMATOCRIT 44.6 % (37.0-47.0); HGB - HEMOGLOBIN 15.4 g/dL (12.0-16.0); LYMPHOCYTES % (AUTO) 5.2 %; MEAN CORPUSCULAR HEMOGLOBIN 31.1 pg (27.0-31.0); MEAN CORPUSCULAR HGB CONC 34.5 g/dL (32.0-36.0); MEAN CORPUSCULAR VOLUME 90.1 fL (81.0-99.0); MEAN PLATELET VOLUME 9.9 fL (7.9-10.8); PLT - PLATELET COUNT 407 10^3/uL (130-450); RED BLOOD COUNT 4.95 10^6/uL (4.20-5.40); RED CELL DISTRIBUTION WIDTH 12.9 % (12.0-15.0); WHITE BLOOD COUNT 25.6 x10^3/uL (4.8-10.8)
[2023-08-20 17:33] LABS: ABNORMAL LYMPHS % (MANUAL) 0 %
[2023-08-20 17:37] LABS: MAGNESIUM 1.4 mg/dL (1.7-2.3)
[2023-08-20 17:49] LABS: ALBUMIN 5.2 g/dL (3.2-5.5); ALBUMIN/GLOBULIN RATIO 1.9 (1.0-2.2); BILIRUBIN,TOTAL 0.8 mg/dL (0.2-1.0); CALCIUM 10.1 mg/dL (8.5-10.3); POTASSIUM 2.5 mmol/L (3.5-4.5); TOTAL PROTEIN 7.9 g/dL (6.4-8.9)
[2023-08-20 17:54] LABS: BAND NEUTROPHILS % (MANUAL) 2 %; LYMPHOCYTES % (MANUAL) 8 %; NEUTROPHILS # (MANUAL) 22.5 10^3/uL (1.5-6.6)
--- NOTE | 2023-08-20 17:57 | ED Physician Documentation ---
PD HPI NVD - Stated complaint Stated Complaint: VOMITTING - Chief complaint Chief Complaint: Abd Pain - Additonal information Additional information: 33-year-old female presents emergency department via ambulance for persistent nausea And vomiting. Patient went to the clinic today for Depo shot for control and has been having persistent nausea and vomiting for the last 3 days. Patient has a developmental delay as well as bipolar disorder and so she is a quite poor historian. Emergently upon arrival to the emergency department patient reported that she just had some nausea vomiting denies any alcohol or drug use. She is quite tangential and it is very hard to get an accurate history and physical and accurate past medical history. Patient denies any history of type 2 diabetes but does report that she had gestational diabetes. No recent fevers or chills Urinalysis does show positive for urinary drug screen is positive for cannabinoids negative for alcohol. I do not have any strong reason as to why her troponin would be elevated could be due to hyperemesis cannabis cannabinoid syndrome. Since patient has been here she has actually had no episodes of nausea vomiting given that she has elevated troponins and she has severe chest pain have a strong suspicion that patient may need hospital admission. At this point in time patient is agreeable to stay for hospital admission I have given report to Dr. Chávez due to change of shift will be watching for CT results. PD PAST MEDICAL HISTORY - Past Medical History Past Medical History: Yes Cardiovascular: None Respiratory: None Endocrine/Autoimmune: None - Present Medications Home Medications: Ambulatory Orders Medication Instructions Recorded Confirmed QUEtiapine [SEROquel] 25 mg PO QPM #30 tablet 11/26/20 08/20/23 Sertraline [Zoloft] 50 mg PO DAILY 30 Days #30 tablet 11/26/20 08/20/23 - Allergies Allergies/Adverse Reactions: Allergies Allergy/AdvReac Type Severity Reaction Status Date / Time No Known Drug Allergies Allergy Verified 08/20/23 17:14 - Social History Does the pt smoke?: No Smoking Status: Never smoker Does the pt drink ETOH?: No Does the pt have substance abuse?: No PD ED PE NORMAL - Vitals Vital signs reviewed: Yes - General General: Alert and oriented X 3, No acute distress, Well developed/nourished - HEENT HEENT: Atraumatic, PERRL, EOMI. 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 Relevant findings are: Rate: Rate (enter#) (98) Rhythm: NSR [place]: Normal Intervals: Normal [place] QRS: Normal. No: LVH Ischemia: ST depression Computer interpretation: Agree with computer - Labs Labs: Laboratory Tests 08/20/23 08/20/23 08/20/23 17:18 17:18 17:18 WBC 25.6 H RBC 4.95 Hgb 15.4 Hct 44.6 MCV 90.1 MCH 31.1 H MCHC 34.5 RDW 12.9 Plt Count 407 MPV 9.9 Neut # (Auto) Not Reportable Lymph # (Auto) Not Reportable [place] # (Auto) Not Reportable Eos # (Auto) Not Reportable Baso # (Auto) Not Reportable Absolute Nucleated RBC Not Reportable Total Counted 100 Band Neuts % (Manual) 2 Abnorm Lymph % (Manual) 0 Nucleated RBC % Not Reportable Neutrophils # (Manual) 22.5 H Lymphocytes # (Manual) 2.0 Monocytes # (Manual) 1.0 Eosinophils # (Manual) 0.0 Basophils # (Manual) 0.0 Differential Comment MANUAL DIFFERENTIAL Platelet Estimate NORMAL (130-450,000) Platelet Morphology NORMAL APPEARANCE RBC Morph Micro Appear NORMAL APPEARANCE D-Dimer VBG pH VBG pCO2 VBG pO2 VBG HCO3 VBG Total CO2 VBG O2 Saturation VBG Base Excess Sodium 135 Potassium 2.5 L* Chloride 99 L Carbon Dioxide 16 L Anion Gap 20.0 H BUN 16 Creatinine 1.0 Estimated GFR (MDRD) 65 L Glucose 158 H Estimat Average Glucose Hemoglobin A1c % Calcium 10.1 Magnesium 1.4 L Total Bilirubin 0.8 AST 24 ALT 38 Alkaline Phosphatase 52 Troponin I High Sens Total Protein 7.9 Albumin 5.2 Globulin 2.7 Albumin/Globulin Ratio 1.9 Lipase 35 Urine Color Urine Clarity Urine pH Ur Specific [place] Urine Protein Urine Glucose (UA) Urine Ketones Urine Occult Blood Urine Nitrite Urine Bilirubin Urine Urobilinogen Ur Leukocyte Esterase Urine RBC Urine WBC Ur Squamous Epith Cells Urine Bacteria Urine Casts Urine Mucus Ur Microscopic Review Urine Culture Comments Urine HCG, Qual Urine Opiates Screen Ur Buprenorphine Scrn Ur Oxycodone Screen Urine Methadone Screen Ur Barbiturates Screen Ur Tricyclics Screen Ur Phencyclidine Scrn Ur Amphetamine Screen U Methamphetamines Scrn U Benzodiazepines Scrn Urine Cocaine Screen U Cannabinoids Screen Ur Drug Screen Comment Ethyl Alcohol Serum Ketones SMALL H 08/20/23 08/20/23 08/20/23 17:18 18:18 19:31 WBC RBC Hgb Hct MCV MCH MCHC RDW Plt Count MPV Neut # (Auto) Lymph # (Auto) [place] # (Auto) Eos # (Auto) Baso # (Auto) Absolute Nucleated RBC Total Counted Band Neuts % (Manual) Abnorm Lymph % (Manual) Nucleated RBC % Neutrophils # (Manual) Lymphocytes # (Manual) Monocytes # (Manual) Eosinophils # (Manual) Basophils # (Manual) Differential Comment Platelet Estimate Platelet Morphology RBC Morph Micro Appear D-Dimer VBG pH 7.339 VBG pCO2 34.7 L VBG pO2 22.2 L VBG HCO3 18.3 L VBG Total CO2 19.3 L VBG O2 Saturation 37.8 L VBG Base Excess -6.6 L Sodium Potassium Chloride Carbon Dioxide Anion Gap BUN Creatinine Estimated GFR (MDRD) Glucose Estimat Average Glucose 88 Hemoglobin A1c % 4.7 Calcium Magnesium Total Bilirubin AST ALT Alkaline Phosphatase Troponin I High Sens Total Protein Albumin Globulin Albumin/Globulin Ratio Lipase Urine Color Urine Clarity Urine pH Ur Specific [place] Urine Protein Urine Glucose (UA) Urine Ketones Urine Occult Blood Urine Nitrite Urine Bilirubin Urine Urobilinogen Ur Leukocyte Esterase Urine RBC Urine WBC Ur Squamous Epith Cells Urine Bacteria Urine Casts Urine Mucus Ur Microscopic Review Urine Culture Comments Urine HCG, Qual Urine Opiates Screen Ur Buprenorphine Scrn Ur Oxycodone Screen Urine Methadone Screen Ur Barbiturates Screen Ur Tricyclics Screen Ur Phencyclidine Scrn Ur Amphetamine Screen U Methamphetamines Scrn U Benzodiazepines Scrn Urine Cocaine Screen U Cannabinoids Screen Ur Drug Screen Comment Ethyl Alcohol < 10.0 Serum Ketones 08/20/23 08/20/23 08/20/23 20:04 20:04 20:18 WBC RBC Hgb Hct MCV MCH MCHC RDW Plt Count MPV Neut # (Auto) Lymph # (Auto) [place] # (Auto) Eos # (Auto) Baso # (Auto) Absolute Nucleated RBC Total Counted Band Neuts % (Manual) Abnorm Lymph % (Manual) Nucleated RBC % Neutrophils # (Manual) Lymphocytes # (Manual) Monocytes # (Manual) Eosinophils # (Manual) Basophils # (Manual) Differential Comment Platelet Estimate Platelet Morphology RBC Morph Micro Appear D-Dimer VBG pH VBG pCO2 VBG pO2 VBG HCO3 VBG Total CO2 VBG O2 Saturation VBG Base Excess Sodium Potassium Chloride Carbon Dioxide Anion Gap BUN Creatinine Estimated GFR (MDRD) Glucose Estimat Average Glucose Hemoglobin A1c % Calcium Magnesium Total Bilirubin AST ALT Alkaline Phosphatase Troponin I High Sens 45.1 H* Total Protein Albumin Globulin Albumin/Globulin Ratio Lipase Urine Color YELLOW Urine Clarity HAZY Urine pH 6.0 Ur Specific [place] >=1.030 H Urine Protein 30 H Urine Glucose (UA) NEGATIVE Urine Ketones >=80 H Urine Occult Blood NEGATIVE Urine Nitrite NEGATIVE Urine Bilirubin SMALL H Urine Urobilinogen 0.2 (NORMAL) Ur Leukocyte Esterase NEGATIVE Urine RBC 0-5 Urine WBC 0-3 Ur Squamous Epith Cells MOD Squamous H Urine Bacteria Few Urine Casts 6-10 Granular Casts Urine Mucus Few Strands Ur Microscopic Review INDICATED Urine Culture Comments NOT INDICATED Urine HCG, Qual NEGATIVE Urine Opiates Screen NEGATIVE Ur Buprenorphine Scrn NEGATIVE Ur Oxycodone Screen NEGATIVE Urine Methadone Screen NEGATIVE Ur Barbiturates Screen NEGATIVE Ur Tricyclics Screen NEGATIVE Ur Phencyclidine Scrn NEGATIVE Ur Amphetamine Screen NEGATIVE U Methamphetamines Scrn NEGATIVE U Benzodiazepines Scrn NEGATIVE Urine Cocaine Screen NEGATIVE U Cannabinoids Screen POSITIVE H Ur Drug Screen Comment CUTOFF CONC BELOW: Ethyl Alcohol Serum Ketones 08/20/23 20:18 WBC RBC Hgb Hct MCV MCH MCHC RDW Plt Count MPV Neut # (Auto) Lymph # (Auto) [place] # (Auto) Eos # (Auto) Baso # (Auto) Absolute Nucleated RBC Total Counted Band Neuts % (Manual) Abnorm Lymph % (Manual) Nucleated RBC % Neutrophils # (Manual) Lymphocytes # (Manual) Monocytes # (Manual) Eosinophils # (Manual) Basophils # (Manual) Differential Comment Platelet Estimate Platelet Morphology RBC Morph Micro Appear D-Dimer 282.0 H VBG pH VBG pCO2 VBG pO2 VBG HCO3 VBG Total CO2 VBG O2 Saturation VBG Base Excess Sodium Potassium Chloride Carbon Dioxide Anion Gap BUN Creatinine Estimated GFR (MDRD) Glucose Estimat Average Glucose Hemoglobin A1c % Calcium Magnesium Total Bilirubin AST ALT Alkaline Phosphatase Troponin I High Sens Total Protein Albumin Globulin Albumin/Globulin Ratio Lipase Urine Color Urine Clarity Urine pH Ur Specific [place] Urine Protein Urine Glucose (UA) Urine Ketones Urine Occult Blood Urine Nitrite Urine Bilirubin Urine Urobilinogen Ur Leukocyte Esterase Urine RBC Urine WBC Ur Squamous Epith Cells Urine Bacteria Urine Casts Urine Mucus Ur Microscopic Review Urine Culture Comments Urine HCG, Qual Urine Opiates Screen Ur Buprenorphine Scrn Ur Oxycodone Screen Urine Methadone Screen Ur Barbiturates Screen Ur Tricyclics Screen Ur Phencyclidine Scrn Ur Amphetamine Screen U Methamphetamines Scrn U Benzodiazepines Scrn Urine Cocaine Screen U Cannabinoids Screen Ur Drug Screen Comment Ethyl Alcohol Serum Ketones PD Medical Decision Making - ED course ED course: 33-year-old female presents emergency department for hyperemesis. Labs were collected she has significant leukocytosis, 25.6 no anemia neutrophils are also quite elevated at 22.5 patient's potassium was found to be quite low at 2.5 although upon my chart review patient has had labs drawn several years ago and she tends to always be hypokalemic, last labs were in 2020 and potassium was 2.8. Patient is having an anion gap at 20.0, no diagnossis of T2DM, Hypomagnesemia 1.4. She was given 50 mg of IV magnesium as well as 40 mEq p.o. potassium for electrolyte replacement. Urinalysis does not show any signs of UTI. She is not . Troponin was drawn as patient started endorsing in worsening chest pain and was found to be elevated at 45.1. D-dimer was also complete with elevated PERC score found to be [address] PE will be complete for further evaluation of patient's worsening chest pain to rule out PE although low suspicion. Departure - Departure Forms: PCP List
[2023-08-20 17:59] LABS: DIFFERENTIAL COMMENT MANUAL DIFFERENTIAL; PLATELET ESTIMATE, MANUAL NORMAL (130-450,000) (NORMAL); PLATELET MORPHOLOGY NORMAL APPEARANCE (NORMAL); RBC MORPHOLOGY (MULTIPLE) NORMAL APPEARANCE (NORMAL)
[2023-08-20] MEDS: POTASSIUM CHLORIDE 20 MEQ TABLET PO STA (18:09)
[2023-08-20] MEDS: MAGNESIUM SULFATE 2 GRAM 2 GM/50 ML BAG IV ONE (18:09)
[2023-08-20] MEDS: SODIUM CHLORIDE 0.9% 1,000 ML IV ONE (19:18)
[2023-08-20 19:36] LABS: VBG PCO2 34.7 mmHg (41-51); VBG PH 7.339 (7.31-7.41)
[2023-08-20 19:37] LABS: VBG BASE EXCESS -6.6 mmol/L (-2 - +2); VBG HCO3 18.3 mmol/L (23-28); VBG OXYGEN SATURATION 37.8 % (60-80); VBG PO2 22.2 mmHg (25-47); VBG TOTAL CO2 19.3 mmol/L (24-29)
[2023-08-20 20:08] LABS: BILIRUBIN,URINE SMALL (NEGATIVE); GLUCOSE, URINE (UA) NEGATIVE (NEGATIVE); KETONES,URINE (UA) >=80 mg/dL (NEGATIVE); LEUKOCYTE ESTERASE, URINE NEGATIVE (NEGATIVE); NITRITE,URINE NEGATIVE (NEGATIVE); OCCULT BLOOD,URINE NEGATIVE (NEGATIVE); PROTEIN,URINE 30 mg/dL (NEGATIVE); UROBILINOGEN,URINE 0.2 (NORMAL) E.U./dL (NORMAL)
[2023-08-20 20:09] LABS: ESTIMATED AVERAGE GLUCOSE 88 mg/dL (70-100); HEMOGLOBIN A1c% 4.7 % (4.27-6.07)
[2023-08-20 20:10] LABS: CLARITY,URINE HAZY (CLEAR); HCG UR QUAL NEGATIVE
[2023-08-20 20:26] LABS: BACTERIA,URINE Few /HPF (None Seen); MUCUS,URINE Few Strands; RBC,URINE 0-5 /HPF (0-5); SQUAMOUS EPITHELIAL CELL,UR MOD Squamous (<= Few); WBC,URINE 0-3 /HPF (0-5)
[2023-08-20] MEDS: diphenhydrAMINE INJ 50 MG/ML VIAL IVP STA (20:36)
[2023-08-20] MEDS: PROCHLORPERAZINE 10 MG/2 ML VIAL IVP STA (20:37)
[2023-08-20 20:44] LABS: AMPHETAMINE SCREEN,URINE NEGATIVE (NEGATIVE); BARBITURATE SCREEN,UR NEGATIVE (NEGATIVE); BENZODIAZEPINES SCREEN, URINE NEGATIVE (NEGATIVE); BUPRENORPHINE SCREEN, URINE NEGATIVE (NEGATIVE); COCAINE SCREEN URINE NEGATIVE (NEGATIVE); METHADONE SCREEN, URINE NEGATIVE (NEGATIVE); METHAMPHETAMINES SCREEN, URINE NEGATIVE (NEGATIVE); OPIATE SCREEN, URINE NEGATIVE (NEGATIVE); OXYCODONE SCREEN, URINE NEGATIVE (NEGATIVE); THC CANNABINOID SCREEN, URINE POSITIVE (NEGATIVE); TRICYCLIC ANTIDEPRESSANT,URINE NEGATIVE (NEGATIVE)
[2023-08-20] MEDS ORDERED: iohexoL-300 100 ML VIAL ONE (21:10)
[2023-08-20] MEDS: iohexoL-300 100 ML VIAL IVP ONE (21:39)
--- NOTE | 2023-08-20 22:26 | CT Report ---
PROCEDURE: Angio Chest INDICATIONS: chest pain, increased d-dimer and troponin CONTRAST: Omni 300, 100mls TECHNIQUE: After the administration of intravenous contrast, 2 mm axial images were acquired from the pulmonary apices to the posterior costophrenic angles during the arterial phase. In addition, 1 mm lung kernel and 5 mm soft tissue kernel reconstructions were performed. 3-dimensional coronal oblique maximum int ensity projection (MIP) reformats, 8 mm axial MIP, and 5 mm coronal and sagittal MPR reformats were t hen performed through the thorax. For radiation dose reduction, the following was used: automated exp osure control, adjustment of mA and/or kV according to patient size. COMPARISON: None. FINDINGS: Image quality: Diagnostic. Large vessels: No filling defects within the opacified pulmonary arteries, accounting for motion and contrast timing. No evidence of acute aortic syndrome or aortic aneurysm. Lungs and pleura: No consolidation. No pleural effusions. No pneumothorax. No suspicious pulmonary n odules which require follow up. Mediastinum: Heart size is normal. No pericardial effusion. No large vessel abnormality. No mediastin al adenopathy by size criteria. Chest wall and lower neck: [Lobe is enlarged and likely contains a 1.5 cm nodule. No axillary or supr aclavicular adenopathy by size. Bones: No aggressive osseous abnormality. Mild dextroscoliosis. Upper Abdomen: Unremarkable. IMPRESSION: 1. No central pulmonary embolus. 2. A 1.5 cm nodule in the left temporal lobe. Recommend thyroid ultrasound for follow-up. 3. Mild dextroscoliosis. Reviewed by: Cassie Shields MD on 08/20/2023 10:25 PM PDT Approved by: Cassie Shields MD on 08/20/2023 10:25 PM PDT Station ID: [id number]
--- NOTE | 2023-08-20 22:43 | ED Physician Documentation ---
ED Addendum - Addendum Addendum: 08/20/23 22:42 Signout from nurse practitioner at 10 PM shift change. Briefly this is a 33-year-old woman with migraines and autism who is here tonight with vomiting, migraine, and chest pain. Nurse practitioner did extensive workup which included labs most notable for hypokalemia at 2.5, white count of 25,000, mild elevation in D-dimer, some acidosis with a bicarb of 16 but relatively unremarkable venous pH, urine without infection and negative test. She was positive for cannabis and had small serum ketones. She was complaining of some chest pain and had a nonischemic EKG and given the D-dimer a CT pulmonary angiogram without pulmonary embolism but she did have a thyroid nodule needing follow-up. Subsequently first troponin was 45 and second was 61. This is odd and understands explained in such a young woman. I talked with her at the bedside. She does have an extensive family history of coronary disease with her mom having had an NV in her 40s and uncle as well. When queried if she still has chest pain the answer was yes but her headache was bothering her more. She appears well albeit some anxiety and a difficult historian because of her autism. She was agreeable for transfer to a cardiac capable facility given her young age and unexplained elevated troponin. The health rn coronary care unit is looking around for a bed, [facility] right now is fairly full as far as bed capacity and all the hospitals. Care to Dr. Zarate at 11 PM shift change. Currently in stable condition. Diagnosis: 1. Elevated troponin 2. Tachycardia 3. Acidosis 4. Migraine headache
[2023-08-20] MEDS ORDERED: ACETAMINOPHEN 500 MG TABLET PO PRN (22:44)
[2023-08-20] MEDS ORDERED: ONDANSETRON 4 MG/2 ML VIAL IVP PRN (22:44)
[2023-08-20] MEDS: METOPROLOL TARTRATE 50 MG TABLET PO STA (22:49)
[2023-08-20] MEDS: ASPIRIN CHEW 81 MG TABLET PO STA (22:50)
[2023-08-20] MEDS: ATORVASTATIN 40 MG TABLET PO STA (22:50)
[2023-08-20] MEDS: HYDROmorphone 1 MG/ML CARPUJECT IVP STA (22:55)
[2023-08-20] MEDS ORDERED: ENOXAPARIN 100 MG/ML SYRINGE SUBQ SCH (23:00)
[2023-08-20] MEDS: POTASSIUM CHLORIDE 20 MEQ/15 ML UDC PO STA (23:32)
[2023-08-20] MEDS: SODIUM CHLORIDE 0.9% 1,000 ML IV STA (23:32)
[2023-08-20] MEDS: POTASSIUM CHLOR 10 MEQ/100 ML 10 MEQ/100 ML BAG IV STA (23:38)
--- NOTE | 2023-08-21 00:14 | ED Physician Documentation ---
ED Addendum - Addendum Addendum: 08/21/23 00:13 Patient endorsed to me by Dr. Chávez awaiting hospitalist Call back from Yoanna Stubbs. Discussed with Dr. Pelletier who accepts in transfer. Disposition transfer Condition fair Impression 1 elevated troponin 2 nausea and vomiting
[2023-08-21 03:16] VITALS: O2SAT 98
[2023-08-21 04:31] VITALS: BP 112/78
[2023-08-21] MEDS ORDERED: PANTOPRAZOLE 40 MG TABLET PO SCH (07:00)
[2023-08-21] MEDS ORDERED: ASPIRIN CHEW 81 MG TABLET PO SCH (09:00)
[2023-08-21] MEDS ORDERED: METOPROLOL TARTRATE 25 MG TABLET PO SCH (09:00)
[2023-08-21] MEDS ORDERED: ATORVASTATIN 40 MG TABLET PO SCH (21:00)
== END 2023-08-21 03:15 | disposition short-term general hospital (02) ==
LOC: EDUNIT# → ED 17:12
DX: R11.2 Nausea with vomiting, unspecified (principal); R79.89 Other specified abnormal findings of blood chemistry; G43.009 Migraine without aura, not intractable, without status migrainosus; R00.0 Tachycardia, unspecified; E87.20 Acidosis, unspecified; R62.50 Unspecified lack of expected normal physiological development in childhood; F31.9 Bipolar disorder, unspecified
CPT/HCPCS: 36415; 71275; 80053; 80306; 81001; 81025; 82009; 82077; 82803; 83036; 83690; 83735; 84484; 85025; 85379; 93005; 96361; 96365; 96367; 96375; 99285; A9270; J1170; J1200; Q9967; 80048; 81003; 87086